=== PATIENT | male | born 1975 | race Caucasian/White ===

== ENCOUNTER 2018-11-02 17:24 | Emergency (ER) | payer OTHER, SELFPAY ==
[2018-11-02 17:27] VITALS: BP 139/97; PULSE 93; RESP 18; TEMP 36.8; O2SAT 96
--- NOTE | 2018-11-02 17:59 | ED.GENADUL_ITS ---
Discharge Plan Disposition Patient Disposition: HOME Condition: Good Discharge Details Chief Complaint: EyeProblem Clinical Impression: Acute bacterial conjunctivitis Primary Care Provider: None,None ED Provider: Jude Chavez Home Meds and New Rx's Prescriptions: New cephalexin [Keflex] 500 mg capsule 500 mg PO QID 10 Days Qty: 40 RF: 0 erythromycin 5 mg/gram (0.5 %) ointment 1.25 cm OP QID Qty: 1 RF: 0 Discharge Instructions Instructions: Conjunctivitis (ED) Additional Instructions: Please apply the medication to your right eye 4 times a day as directed. Please take the Keflex 4 times a day as directed. 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 Please follow up with your primary care provider as soon as possible for reassessment and reevaluation. As always, it was a pleasure participating in your medical care today. Discharge Data Discharge Date/Time-TO BE ENTERED AT DEPARTURE: 11/02/18 18:12 Medical Decision Making This is a pleasant 43-year-old male with no significant past medical history who presents for runny, group B, drainage in his right eye, and irritation-like sensation in his eye. He denies any trauma or foreign body. Exam demonstrates minimal erythema and swelling around the eye, no pain or tenderness, no pain or tenderness with the eye, no clinical evidence of preseptal cellulitis. Minimal conjunctival injection with group B purulent discharge. Visual acuity is normal and stable. The patient is not on chronic steroids, no evidence of foreign body or laceration on floor seen stain. Signs and symptoms appear consistent with a mild bacterial conjunctivitis of the right eye. There is mild redness and swelling out of an abundance of precaution we will start the patient on oral Keflex and topical erythromycin ointment. At this time there is no evidence of sepsis, severe preseptal cellulitis, or other significant abnormality. 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 We discussed red flags for which to return. I have extensively reviewed the treatment plan and discharge instructions with the patient and their family. I have addressed all patient concerns at this time. The patient and family was made aware of what symptoms to monitor for that would warrant a return to the emergency department. Discussed the plan with the patient and family, they demonstrate verbal understanding and agreement with our assessment and plan at this time. HPI General Date/Time Provider Initiated Documentation: 11/02/18 17:42 . HPI Narrative: This is a pleasant 43-year-old male with no significant past medical history who presents today for swelling, purulent drainage from his right eye, and a mild sensation of irritation in his right eye last 24 hours. 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 He does admit to mild swelling around the eyeball itself, but he denies any pain with movement of his eye whatsoever. He has no other complaints or modifying factors. He denies fever, chills, headache. Tetanus is up-to-date. Related Data Home Medications Medication Instructions Recorded Confirmed cephalexin [Keflex] 500 mg PO QID 10 Days #40 cap 11/02/18 erythromycin 1.25 cm OP QID #1 gm 11/02/18 Previous Rx's Medication Instructions Recorded cephalexin [Keflex] 500 mg PO QID 10 Days #40 cap 11/02/18 erythromycin 1.25 cm OP QID #1 gm 11/02/18 Allergies Allergy/AdvReac Type Severity Reaction Status Date / Time No Known Allergies Allergy Unverified 11/02/18 17:31 General Stated Complaint: EyeProblem JOON: 5 Review of Systems Review of Systems All systems reviewed & are unremarkable except as noted in HPI and below PFSH Surgical History History of left knee surgery (Acute) Social History Smoking/Tobacco Use Status: Current-Occasional Tobacco Type: cigarettes Alcohol Intake: current Alcohol Intake frequency: a few times a week Alcohol type: beer and hard liquor Substance use type: does not use Additional Social history: pt is not alone to assess privately Exam Narrative Exam Narrative: 1.Const: Well-nourished, Well-developed, appearing stated age 2.Eyes: PERRL, mild right eye conjunctival injection, and symmetrical lids. Right Eye: EOMI, PERRL, Peripheral vision intact. No nystagmus. Fundoscopic exam shows normal optic discs and normal vasculature. No external signs of preseptal cellulitis, minimal redness around the eye with minimal swelling. No tenderness on palpation. no proptosis. No hyphema, no signs of trauma around the eye, no periorbital emphysema. Fluorescein exam is negative for corneal abrasion, negative Alen sign. Visual acuity as documented in chart. No pain with movement of the eye. 3.ENT: Atraumatic external nose and ears. Moist MM. Neck: Symmetric, trachea midline, No thyromegaly. 4.CVS: +S1/S2, No murmurs or gallops. Peripheral pulses 2+ and equal in all extremities. Brisk capillary refill in all extremities. 5.RESP: Unlabored respiratory effort. Clear to auscultation bilaterally. No wheezes rales or rhonchi 6.GI: Soft, Nontender/Nondistended, No hepatosplenomegaly. No guarding or rebound. 7.MSK: Normocephalic/Atraumatic, Extremities w/o deformity or ttp No cyanosis or clubbing, Normal movement of all extremities 8.Skin: Warm, Dry. No rashes or lesions. 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 Sensation grossly intact, no focal neurologic deficits. 10.Psych: (AAO) x3. Appropriate mood and affect Course Vital Signs Temperature 36.8 C 11/02/18 17:27 Pulse 93 H 11/02/18 17:27 Respiratory Rate 18 11/02/18 17:27 Blood Pressure 139/97 H 11/02/18 17:27 Pulse Oximetry 96 11/02/18 17:27 Temperature 36.8 C 11/02/18 17:27 Temperature Source Skin 11/02/18 17:27 Pulse 93 H 11/02/18 17:27 Respiratory Rate 18 11/02/18 17:27 Respiratory Effort Non-Labored 11/02/18 17:30 Blood Pressure 139/97 H 11/02/18 17:27 Pulse Oximetry 96 11/02/18 17:27 Pain Level 2 11/02/18 17:27
[2018-11-02] MEDS: Cephalexin 500 MG CAP PO (18:05)
[2018-11-02] MEDS: Erythromycin Ophth Oint 3.5 GM TUBE OD (18:05)
--- NOTE | 2018-11-02 18:09 | NUR.NOTE ---
patient received discharge and medication teaching per MD order Nursing Note:
== END 2018-11-02 18:12 | disposition home or self-care (01) ==
PROVIDERS: Emergency Provider Student in an Organized Health Care Education/Training Program
DX: H10.31 Unspecified acute conjunctivitis, right eye (principal)
CPT/HCPCS: 99283

== ENCOUNTER 2019-05-05 16:04 | Emergency (ER) | payer OTHER, SELFPAY ==
[2019-05-05 16:29] VITALS: BP 149/105; PULSE 92; RESP 12; TEMP 36.9; O2SAT 98
--- NOTE | 2019-05-05 16:37 | W.ED.GENAD ---
Discharge Plan Disposition Patient Disposition: HOME Condition: Improving Discharge Details Chief Complaint: Cellulitis Clinical Impression: Abscess of left index finger Primary Care Provider: None,None ED Provider: Mikey Ahmadi Home Meds and New Rx's Prescriptions: New cephalexin 500 mg capsule 500 mg PO TID 5 Days Qty: 15 RF: 0 Discharge Instructions Instructions: Abscess (ED) Additional Instructions: Remove current dressing in place for 2 to 3 days time, then remove, may perform daily soap and water cleanse, pat dry, replace Band-Aid. Keep area clean and dry. Take antibiotics as prescribed. Return for development of fever, foul-smelling discharge from the wound, or any other acute concerns. Medical Decision Making 44-year-old male who cut his left index finger on a clean metal table 1 week ago, now developed 36 hours of erythema, pain and swelling. He is afebrile. He is noted to have mild hypertension. Patient consented for risks, benefits of incision and drainage. He agreed. He was anesthetized with 1% lidocaine, the area was incised with an 11 blade with 2 cc of purulent fluid removed. The wound was explored without evidence of foreign body. Dressed. I will place him on Keflex and discussed with him home management of the wound as well as follow-up/return precautions. HPI General Mode of arrival: ambulatory. Date/Time Provider Initiated Documentation: 05/05/19 16:34. Limitations to Documentation: no limitations. Information obtained by: patient. History of Present Illness 44 year old M presents to the emergency department with the chief complaint of Left index finger infection, described as moderate, Quality is described as dull and constant, and is localized to the left and upper extremity. Patient reports no radiation. Patient started experiencing this hour(s) and it has been constant. No relieving factors improve symptom(s), No exacerbating factors reported . Patient notes no other symptoms.. Patient did receive the following treatments prior to arrival, none Related Data Home Medications Medication Instructions Recorded Confirmed cephalexin 500 mg PO TID 5 Days #15 cap 05/05/19 Previous Rx's Medication Instructions Recorded cephalexin 500 mg PO TID 5 Days #15 cap 05/05/19 Allergies Allergy/AdvReac Type Severity Reaction Status Date / Time No Known Allergies Allergy Unverified 05/05/19 16:32 General Stated Complaint: Cellulitis JOON: 4 Review of Systems Narrative: Tetanus out of date. No systemic fever or chills. Patient is otherwise well. No numbness or tingling. 4 systems reviewed and otherwise negative [facility] Surgical History (Updated 11/02/18 @ 17:31 by Hilaria Hawkins) History of left knee surgery (Acute) acl repair Social History Smoking/Tobacco Use Status: Current-Occasional Tobacco Type: cigarettes Alcohol Intake: current Alcohol Intake frequency: a few times a week Alcohol type: beer and hard liquor Substance use type: does not use Additional Social history: pt is not alone to assess privately Exam Narrative Exam Narrative: GEN: awake, alert, oriented 3. Pleasant, well groomed, interactive. HEAD: Normocephalic, atraumatic ENT: Mucous membranes moist, oropharynx unremarkable, External ear exam unremarkable EYES: PERRL, EOMI EXT: Full ROM, left index finger with dorsal pain and swelling overlying middle phalanx with fluctuance and pointing. Neuro: Grossly normal neurologic exam, conversant, interactive. Psych: Speech fluent, thoughts congruent, affect normal Course Vital Signs Vital signs: Vital Signs Temperature 36.9 C 05/05/19 16:29 Pulse 92 H 05/05/19 16:29 Respiratory Rate 12 05/05/19 16:29 Blood Pressure 149/105 H 05/05/19 16:29 Pulse Oximetry 98 05/05/19 16:29 Temperature 36.9 C 05/05/19 16:29 Temperature Source Temporal Artery Scan 05/05/19 16:29 Pulse 92 H 05/05/19 16:29 Respiratory Rate 12 05/05/19 16:29 Blood Pressure 149/105 H 05/05/19 16:29 Blood Pressure Position Sitting 05/05/19 16:29 Pulse Oximetry 98 05/05/19 16:29 Oxygen Delivery Method Room Air 05/05/19 16:29 Oxygen Flow Rate 0 05/05/19 16:29 Pain Level 1 05/05/19 16:29 Procedures Abscess I/D Site: Hand Side (if applicable): Left Local Anesthetic: Lidocaine 1% Amount of anesthesia used (mL): 1 Technique: Incised with #11 Blade Amount of fluid expressed (mL): 2 Irrigation: Yes Packing used?: None
[2019-05-05] MEDS: Cephalexin 500 MG CAP PO (17:23)
== END 2019-05-05 17:31 | disposition home or self-care (01) ==
PROVIDERS: Emergency Provider Emergency Medicine
DX: L02.512 Cutaneous abscess of left hand (principal); I10 Essential (primary) hypertension
CPT/HCPCS: 10060; 80053; 90471; 99283; 83735; 84484; 85025

== ENCOUNTER 2019-11-13 02:06 | Outpatient (RCR) | payer OTHER, SELFPAY ==
[2019-11-12 07:17] LABS: BUN 20 mg/dL (7-18); CREATININE 0.92 mg/dL (0.70-1.30); Calcium 8.7 mg/dL (8.5-10.1); Chloride 104 mmol/L (98-107); Glucose 154 mg/dL (74-106); Potassium 3.9 mmol/L (3.5-5.1); Sodium 139 mmol/L (136-145)
[2019-11-12 07:25] LABS: Hemoglobin A1C 7.2 % (3.8-5.6)
[2019-11-12 07:38] LABS: Calculated LDL 123 mg/dL (<100); Cholesterol 226 mg/dL (<200); HDL Cholesterol 31 mg/dL (40-60); Triglyceride 364 mg/dL (<150)
[2019-11-13 08:14] LABS: COMMENT (LAB VIEW ONLY) 170.69 mg/dL; Microalb ug/mg Crea 47.8 ug/mg Cr
== END 2019-11-25 23:59 | disposition home or self-care (01) ==
LOC: INF 02:06
PROVIDERS: Visit Provider Physician Assistant Medical
DX: E11.9 Type 2 diabetes mellitus without complications (principal)
CPT/HCPCS: 36415; 80048; 80061; 82043; 82570; 83036

== ENCOUNTER 2020-02-20 01:41 | Outpatient (RCR) | payer OTHER, SELFPAY ==
[2020-02-20 07:18] LABS: COMMENT (LAB VIEW ONLY) 257.87 mg/dL
[2020-02-20 07:19] LABS: Anion Gap 5.6 mmol/L (3-11); BUN 27 mg/dL (7-18); CO2 25.4 mmol/L (21.0-32.0); CREATININE 0.89 mg/dL (0.70-1.30); Calcium 8.8 mg/dL (8.5-10.1); Calculated LDL 36 mg/dL (<100); Chloride 107 mmol/L (98-107); Cholesterol 124 mg/dL (<200); Glucose 211 mg/dL (74-106); HDL Cholesterol 27 mg/dL (40-60); Potassium 4.1 mmol/L (3.5-5.1); Sodium 138 mmol/L (136-145); Triglyceride 308 mg/dL (<150)
[2020-02-20 08:59] LABS: Hemoglobin A1C 8.3 % (3.8-5.6)
== END 2020-02-25 23:59 | disposition home or self-care (01) ==
LOC: INF 01:41
PROVIDERS: Visit Provider Physician Assistant Medical
DX: E11.9 Type 2 diabetes mellitus without complications (principal); E78.5 Hyperlipidemia, unspecified
CPT/HCPCS: 36415; 80048; 80061; 82043; 82570; 83036

== ENCOUNTER 2020-05-21 01:29 | Outpatient (RCR) | payer OTHER, SELFPAY ==
[2020-05-20 07:43] LABS: Anion Gap 11.7 mmol/L (3-11); BUN 20 mg/dL (7-18); CO2 24.3 mmol/L (21.0-32.0); CREATININE 0.89 mg/dL (0.70-1.30); Calcium 8.8 mg/dL (8.5-10.1); Chloride 103 mmol/L (98-107); Glucose 183 mg/dL (74-106); Potassium 4.3 mmol/L (3.5-5.1); Sodium 139 mmol/L (136-145)
[2020-05-20 08:05] LABS: Hemoglobin A1C 8.6 % (<5.7)
[2020-05-21 08:13] LABS: COMMENT (LAB VIEW ONLY) 167.01 mg/dL
== END 2020-05-26 23:59 | disposition home or self-care (01) ==
LOC: INF 01:29
PROVIDERS: Visit Provider Physician Assistant Medical
DX: E11.9 Type 2 diabetes mellitus without complications (principal); R80.9 Proteinuria, unspecified; I10 Essential (primary) hypertension; E78.2 Mixed hyperlipidemia
CPT/HCPCS: 36415; 80048; 82043; 82570; 83036

== ENCOUNTER 2022-09-27 15:11 | Outpatient (CLI) | payer OTHER, SELFPAY ==
[2022-09-27 13:43] LABS: Hemoglobin A1C 6.8 % (<5.7)
[2022-09-27 14:01] LABS: ALT 30 U/L (16-63); AST 14 U/L (15-37); Albumin 3.8 g/dL (3.4-5.0); Alkaline Phosphatase 60 U/L (46-116); Anion Gap 9.8 mmol/L (3-11); BUN 19 mg/dL (7-18); Bilirubin, Total 0.4 mg/dL (0.2-1.0); CO2 27.2 mmol/L (21.0-32.0); Calculated LDL 42 mg/dL (<100); Chloride 102 mmol/L (98-107); Cholesterol 106 mg/dL (<200); Glucose 106 mg/dL (74-106); HDL Cholesterol 34 mg/dL (40-60); Potassium 4.1 mmol/L (3.5-5.1); Sodium 139 mmol/L (136-145); Total Protein 7.6 g/dL (6.4-8.2); Triglyceride 152 mg/dL (<150)
== END 2022-09-27 15:12 | disposition home or self-care (01) ==
LOC: LBO 15:11
DX: E11.9 Type 2 diabetes mellitus without complications (principal); Z00.00 Encounter for general adult medical examination without abnormal findings
CPT/HCPCS: 36415; 80053; 80061; 82043; 82570; 83036

== ENCOUNTER 2023-07-21 11:17 | Outpatient (CLI) | payer OTHER, SELFPAY ==
[2023-07-21 12:21] LABS: Abs Immature Grans 0.03 10^3/uL (0.0-0.06); Absolute Basophil Count 0.05 10^3/uL (0.0-0.2); Absolute Lymphocyte Count 1.46 10^3/uL (1.2-3.4); Absolute Monocyte Count 0.53 10^3/uL (0.1-0.8); Absolute Neutrophil Count 5.23 10^3/uL (1.2-6.7); Basophils % 0.7; Eosinophils % 2.7; HGB 16.6 g/dL (13.5-17.5); Immature Grans % 0.4; Lymphocytes % 19.5; MCH 30.9 pg (27.0-33.0); MCHC 33.9 % (32.0-36.0); MCV 91 fL (80-95); MPV 9.8 fL (8.0-11.0); Monocytes % 7.1; Neutrophils % 69.6; Platelet Count 247 10^3/uL (130-400); RBC 5.38 10^6/uL (4.36-5.78); RDW 12.3 % (11.8-14.1); RDW-SD 41.1 fL
[2023-07-21 12:39] LABS: Hemoglobin A1C 8.2 % (<5.7)
[2023-07-21 12:48] LABS: COMMENT (LAB VIEW ONLY) 39.58 mg/dL
[2023-07-21 12:49] LABS: ALT 38 U/L (16-63); AST 19 U/L (15-37); Albumin 3.8 g/dL (3.4-5.0); Alkaline Phosphatase 45 U/L (46-116); BUN 20 mg/dL (7-18); Bilirubin, Total 0.4 mg/dL (0.2-1.0); CREATININE 0.9 mg/dL (0.70-1.30); Calcium 9.3 mg/dL (8.5-10.1); Calculated LDL 87 mg/dL (<100); Chloride 101 mmol/L (98-107); Cholesterol 159 mg/dL (<200); Estimated GFR 106.01 (mL/min/1.73m2); Glucose 197 mg/dL (74-106); HDL Cholesterol 45 mg/dL (40-60); Potassium 3.9 mmol/L (3.5-5.1); Sodium 136 mmol/L (136-145); Total Protein 7.6 g/dL (6.4-8.2); Triglyceride 137 mg/dL (<150)
[2023-07-22 09:22] LABS: IgG 971 mg/dL (610-1616)
[2023-07-22 09:32] LABS: C4 Complement 29 mg/dL (13-39)
[2023-07-22 21:48] LABS: Almond IgE <0.10 kU/L (<0.70); Brazil Nut IgE <0.10 kU/L (<0.70); Cashew IgE <0.10 kU/L (<0.70); Clam IgE <0.10 kU/L (<0.70); Coconut IgE <0.10 kU/L (<0.70); Crab IgE <0.10 kU/L (<0.70); Hazelnut-Food IgE <0.10 kU/L (<0.70); Lobster IgE <0.10 kU/L (<0.70); Oyster IgE <0.10 kU/L (<0.70); Peanut IgE <0.10 kU/L (<0.70); Pecan-Food IgE <0.10 kU/L (<0.70); Pistachio, IgE <0.10 kU/L (<0.70); Scallop IgE <0.10 kU/L (<0.70); Shrimp IgE <0.10 kU/L (<0.70); Walnut-Food IgE <0.10 kU/L (<0.70)
== END 2023-07-21 11:18 | disposition home or self-care (01) ==
LOC: LBO 11:19
PROVIDERS: Visit Provider Registered Nurse
DX: I10 Essential (primary) hypertension (principal); E78.2 Mixed hyperlipidemia; E11.9 Type 2 diabetes mellitus without complications
CPT/HCPCS: 36415; 80053; 80061; 82784; 83520; 86003; 82043; 82570; 83036; 85025; 86160

== ENCOUNTER → 2023-09-02 15:28 | Outpatient (CLI) | payer OTHER, SELFPAY ==
--- NOTE | 2023-09-02 16:11 | DI.RAD_ITS ---
Exam(s) XR KNEE RT 3V AP,LAT,WON EXAM: XR KNEE RT 3V AP,LAT,WON CLINICAL HISTORY: RT KNEE PAIN, M25.561. TECHNIQUE: 2D digital imaging was performed. COMPARISON: No exams were available for comparison FINDINGS: 3 views No evidence of fracture or obvious joint effusion. Bone density normal. No osseous lesions. No ganga nt space narrowing. IMPRESSION: No significant radiographic findings on these three views of the right knee. DATA REPOSITORY: RADIATION DOSE DELIVERED:
== END ==
PROVIDERS: Visit Provider Registered Nurse
DX: M25.561 Pain in right knee (principal)
CPT/HCPCS: 73562

== ENCOUNTER → 2023-11-18 01:00 | Outpatient (CLI) | payer OTHER, SELFPAY ==
--- NOTE | 2023-11-18 07:45 | DI.MRI_ITS ---
Exam(s) MR LOWER JOINT RT WO EXAM: MR LOWER JOINT RT WO CLINICAL HISTORY: PAIN,acute lateral meniscus tear rt knee,[id number]. TECHNIQUE: Multiplanar multisequence MRI was performed. COMPARISON: CR XR KNEE RT 3V AP,LAT,WON from 09/02/2023 FINDINGS: BONES: There is no fracture or contusion pattern. Tiny cysts are noted near the tibial spines. Mi ld edema noted in the medial fibular head near the proximal tibial fibular joint. There few 2 adjace nt tiny cysts. JOINTS: A small joint effusion is present. Articular cartilage: Patellofemoral joint: Minimal thinning at lateral facet. Medial femoral tibial joint: Articular cartilage is unremarkable. Lateral femoral tibial joint: Articular cartilage is unremarkable. TENDONS: Extensor mechanism: Unremarkable. Medial retinaculum: Unremarkable. Lateral retinaculum: Unremarkable. Popliteus: Unremarkable. MUSCLES: Unremarkable. MENISCI: The medial meniscus shows no evidence of tear. Mild degenerative signal changes in the body. The lateral meniscus shows mild degenerative signal changes in the body. No focal tear. SOFT TISSUES: Anterior soft tissue edema. There are a few small synovial cysts seen posterior to t he medial femoral condyle. LIGAMENTS: Anterior Cruciate: Unremarkable. Posterior Cruciate: Unremarkable. Medial Collateral:Unremarkable. Lateral Collateral: Unremarkable. IMPRESSION: No evidence of ligament tear or meniscal tear. Additional minor findings as mentioned above. DATA REPOSITORY:
== END ==
PROVIDERS: PCP Registered Nurse; Visit Provider Student in an Organized Health Care Education/Training Program
DX: S83.281A Other tear of lateral meniscus, current injury, right knee, initial encounter (principal); X58.XXXA Exposure to other specified factors, initial encounter
CPT/HCPCS: 73721